=== PATIENT | female | born 1935 | race Caucasian/White ===

== ENCOUNTER → 2016-05-27 | Outpatient (CLI) | payer MEDICARE, OTHER | END | disposition home or self-care (01) | LOC: GMAB 15:15 | PROVIDERS: ATTEND Family Medicine | DX: I10 Essential (primary) hypertension (principal); G60.3 Idiopathic progressive neuropathy ==

== ENCOUNTER 2016-06-01 15:58 | Emergency (ER) | payer MEDICARE, OTHER ==
--- NOTE | 2016-06-01 16:17 | ED.PDOC ---
History of Present Illness - General Chief Complaint: Lower Extremity Injury Stated Complaint: pain left hip/fell Time Seen by Provider: 06/01/16 16:11 Source: patient Exam Limitations: no limitations - History of Present Illness Initial Comments: She stated that she was trimming her bushes slipped and fell then ambulance was called up by the since unable to get up because of pain on left hip.Denies loc remembers incident,no neck pain or headache Timing/Duration: just prior to arrival Severity: moderate Hip Pain Location: hip (L) Method of Injury/Prior Injury: fell Improving Factors: immobilization Worsening Factors: movement Associated Symptoms: denies symptoms Allergies/Adverse Reactions: Allergies NO KNOWN ALLERGY Allergy (Verified 06/01/16 16:24) Home Medications: Ambulatory Orders Gabapentin 06/01/16 Lipitor 06/01/16 Synthroid 06/01/16 Review of Systems - Review of Systems Constitutional: States: no symptoms reported EENTM: States: no symptoms reported Respiratory: States: no symptoms reported Cardiology: States: no symptoms reported Gastrointestinal/Abdominal: States: no symptoms reported Genitourinary: States: no symptoms reported Musculoskeletal: States: no symptoms reported Skin: States: no symptoms reported Neurological: States: paresthesia Endocrine: States: no symptoms reported Hematologic/Lymphatic: States: no symptoms reported Past Medical History (General) - Patient Medical History Hx Hypertension: Yes Hx Thyroid Disease: Yes - hypothyroidism Hx Other PMH: Yes - dyslipedemia Surgical History: other - breast biopsy - Social History Hx Tobacco Use: No Hx Alcohol Use: No - Activities of Daily Living Patient Lives Alone: No - Grooming Ability: Independent Eating (Feeding) Ability: Independent Toileting Ability: Independent Physical Exam - Physical Exam General Appearance: Alert, Comfortable, No apparent distress Eyes, Ears, Nose, Throat Exam: PERRL/EOMI, normal ENT inspection, TMs normal, pharynx normal Neck Exam: non-tender, full range of motion, normal alignment, normal inspection Cardiovascular/Respiratory: regular rate, rhythm, no M/R/G, normal peripheral pulses, no JVD, normal breath sounds, no respiratory distress Peripheral Pulses: radial,right: 2+, radial,left: 2+, dorsalis pedis,right: 2+, dorsalis pedis,left: 2+ Gastrointestinal/Abdominal: normal bowel sounds, non tender, soft, no organomegaly Back Exam: normal inspection, no CVA tenderness, no vertebral tenderness Extremity Exam: pelvis stable, bony-point tenderness - left hip, pain with movement, unable to bear weight Neurologic: no motor/sensory deficits, alert, normal mood/affect, oriented x 3 Skin Exam: normal color, warm/dry Progress - EKG/XRAY/CT XRAY: hip - left-femoral neck fracture Departure - Departure Clinical Impression: Femur fracture, left Qualifiers: Encounter type: initial encounter Femur location: neck Fracture type: closed Fall in home Qualifiers: Encounter type: initial encounter Qualifier Code: (W19.XXXA) Unspecified fall, initial encounter Time of Disposition: 17:15 Disposition: Discharge to Home or Self Care Condition: Good Home Medications: Ambulatory Orders Gabapentin 06/01/16 Lipitor 06/01/16 Synthroid 06/01/16
[2016-06-01 16:24] VITALS: TEMP 97.7
--- NOTE | 2016-06-01 16:50 | RAD ---
PROCEDURE: Pelvis,2 or More Views Clinical History: pain Indication: Left hip pain Comparison: X-ray of the left hip done on the same day . Technique: 2.0 frontal views of the pelvis Findings: There is subcapital fracture of the proximal left femur. The left femoral acetabular articulation is intact. The remainder of the bony pelvis does not show any evidence of acute bony trauma. Degenerative changes are seen in the visualized lower lumbar spine. Impression: There is subcapital fracture of the proximal left femur. The left femoral acetabular articulation is intact. Place of interpretation: [id number]. Electronically signed by: Gurwinder Butcher MD 06/01/2016 4:49 PM [employer]IE[employer]
[2016-06-01] MEDS ORDERED: HYDROmorphone HCL INJ 2 MG/ML VIAL IV ONE (17:39)
[2016-06-01 18:03] VITALS: BP 173/79; O2SAT 97
--- NOTE | 2016-06-17 00:02 | RAD ---
PROCEDURE: Hip,Left 2 Views Clinical History: pain Indication: Left hip pain Comparison: None. Technique: 2.0 views of the left hip. Findings: There is subcapital fracture of the proximal left femur. The left femoral acetabular articulation is intact. The remainder of the visualized bones of the left side of the pelvis are intact Impression: There is subcapital fracture of the proximal left femur. The left femoral acetabular articulation is intact. Location of Interpretation: [facility] Electronically signed by: Gurwinder Butcher MD 06/01/2016 4:48 PM [employer]
--- NOTE | 2016-06-17 00:02 | RAD ---
PROCEDURE: Pelvis,2 or More Views Clinical History: pain Indication: Left hip pain Comparison: X-ray of the left hip done on the same day . Technique: 2.0 frontal views of the pelvis Findings: There is subcapital fracture of the proximal left femur. The left femoral acetabular articulation is intact. The remainder of the bony pelvis does not show any evidence of acute bony trauma. Degenerative changes are seen in the visualized lower lumbar spine. Impression: There is subcapital fracture of the proximal left femur. The left femoral acetabular articulation is intact. Place of interpretation: [id number]. Electronically signed by: Gurwinder Butcher MD 06/01/2016 4:49 PM [employer]OPER
== END 2016-06-01 18:03 | disposition home or self-care (01) ==
LOC: ER 15:58
DX: S72.002A Fracture of unspecified part of neck of left femur, initial encounter for closed fracture (principal); I10 Essential (primary) hypertension; E03.9 Hypothyroidism, unspecified; E78.5 Hyperlipidemia, unspecified; Z79.899 Other long term (current) drug therapy; W01.0XXA Fall on same level from slipping, tripping and stumbling without subsequent striking against object, initial encounter; Y93.H2 Activity, gardening and landscaping; Y92.007 Garden or yard of unspecified non-institutional (private) residence as the place of occurrence of the external cause
CPT/HCPCS: 72190; 73502; J1170

== ENCOUNTER → 2016-12-17 | Outpatient (CLI) | payer MEDICARE, OTHER | END | disposition home or self-care (01) | LOC: GMAB 10:51 | PROVIDERS: ATTEND Family Medicine | DX: E03.9 Hypothyroidism, unspecified (principal); D64.9 Anemia, unspecified; E53.8 Deficiency of other specified B group vitamins ==

== ENCOUNTER → 2017-01-30 | Outpatient (CLI) | payer MEDICARE, OTHER ==
--- NOTE | 2017-01-31 13:08 | MAM ---
EXAM DESCRIPTION: 3D Screening BILATERAL. Digital mammography. CLINICAL HISTORY: 82 years Female SCREENING . No complaints. No family history of breast cancer. Postmenopausal. Taking HRT five or more years ago. Prior benign left breast biopsy. COMPARISON: 2-D digital screening bilateral studies 01/23/2015 and 01/30/2016.. Report from prior examination also reviewed. TECHNIQUE: Bilateral CC and MLO projection full-field images, 3-D tomosynthesis digital mammographic technique. Also bilateral synthesized CC/ MLO full-field images. CAD not utilized. FINDINGS: The breast parenchymal density pattern is: Scattered areas of fibroglandular density. No skin thickening or nipple retraction Architectural distortion in the anterior third of the upper-outer quadrant of the left breast at the location of prior biopsy. Two site markers are present. Bilateral axillary lymph nodes. Bilateral solitary microcalcifications. Bilateral coarse calcifications. Asymmetrically dense breast tissue again noted in the upper outer quadrant of the anterior third of the middle third of the right breast. No focal, stellate mass or density, focal asymmetry , and no suspicious microcalcifications laterally. Stable mammograms compared to prior study (January 2015), taking into account differences in mammographic technique IMPRESSION: BI-RADS CATEGORY: 2 - BENIGN FINDINGS. FOLLOW UP: Routine digital bilateral screening, one year interval from January 2015. Written communication explaining the IMPRESSION and follow-up, will be mailed to the patient and referring health care provider. According to the [employer], yearly mammograms are recommended starting at age 40 and continuing as long as a woman is in good health. Any breast change noted on a breast self-exam should be reported promptly to the patient's healthcare provider. Breast MRI is recommended for women with an approximately 20-25% or greater lifetime risk of breast cancer, including women with a strong family history of breast or ovarian cancer and women who have been treated for Hodgkin's disease. A negative mammographic report should not delay tissue diagnosis in patients with significant clinical history or physical findings. Extremely dense breast tissue limits the sensitivity of digital mammography. Electronically signed by: Mychal Gao MD 01/31/2017 1:07 PM CDT
== END | disposition home or self-care (01) ==
LOC: MAMMO 10:08
PROVIDERS: ATTEND Family Medicine
DX: Z12.31 Encounter for screening mammogram for malignant neoplasm of breast (principal)
CPT/HCPCS: 77063; G0202

== ENCOUNTER 2017-02-12 05:48 | Day surgery (SDC) | payer MEDICARE, OTHER ==
[2017-02-12] MEDS ORDERED: LACTATED RINGERS 1,000 ML ONE (06:04)
[2017-02-12] MEDS ORDERED: PROPOFOL 200 MG/20 ML VIAL IV ONE (10:00)
--- NOTE | 2017-02-12 11:14 | OP ---
DATE OF PROCEDURE: 02/12/17 PREOPERATIVE DIAGNOSIS: 1. Fecal occult blood positive. 2. Diarrhea. POSTOPERATIVE DIAGNOSIS: 1. Internal hemorrhoids. 2. Diverticulosis. 3. Colonic polyps. PROCEDURE: 1. Colonoscopy plus biopsy plus polypectomy. SURGEON: Dung Jesus MD. COMPLICATIONS: None apparent. BLOOD LOSS: None. MEDICATIONS: Monitored anesthesia care. DESCRIPTION OF PROCEDURE: Informed consent was obtained prior to sedation. The preprocedure cardiopulmonary assessment was satisfactory. The patient was placed in the left lateral decubitus position and was sedated. A digital rectal exam was unremarkable. The tip of the Olympus colonoscope was inserted in the rectum and guided over to the cecum. The cecum was identified by locating the ileocecal valve and appendiceal orifice. The mucosa of the cecum, ascending colon, hepatic flexure, transverse colon, splenic flexure, descending colon and sigmoid colon was closely examined. Direct and retroflexed views of the rectum were obtained. The patient had a little cluster of tiny sessile polyps in the ascending colon. These were removed with a cold snare and recovered. The patient had some sigmoid diverticula and she had internal hemorrhoids. Otherwise, the colon mucosa was unremarkable. I took biopsies of normal appearing colonic mucosa randomly in order to look for microscopic colitis. The procedure was then terminated. RECOMMENDATIONS: 1. Followup pathology results. 2. Adjust therapy as indicated. #[id number] cc: Fabricio Gotti MD MTDD
[2017-02-12 13:40] VITALS: BP 79/46; TEMP 97; O2SAT 99
== END 2017-02-12 11:20 | disposition home or self-care (01) ==
LOC: AMB 05:48
PROVIDERS: ATTEND Internal Medicine Gastroenterology
DX: R19.5 Other fecal abnormalities (principal); R19.7 Diarrhea, unspecified; D12.2 Benign neoplasm of ascending colon; K52.831 Collagenous colitis; K57.30 Diverticulosis of large intestine without perforation or abscess without bleeding; K64.8 Other hemorrhoids; E78.5 Hyperlipidemia, unspecified; E03.9 Hypothyroidism, unspecified; Z79.82 Long term (current) use of aspirin; Z79.899 Other long term (current) drug therapy
CPT/HCPCS: 00810; 45385; 88305; J3490; J7120

== ENCOUNTER → 2017-02-20 | Outpatient (CLI) | payer MEDICARE, OTHER ==
--- NOTE | 2017-02-20 14:30 | CT ---
EXAM DESCRIPTION: Abdomen/Pelvis w/Contrast CLINICAL HISTORY: BLOOD IN STOOL COMPARISON: None. TECHNIQUE: Spiral-axial scans at 5.0 mm intervals through the abdomen and pelvis, after nonionic IV contrast. No oral contrast. Coronal and sagittal 2.0 mm reconstructions. Delayed scans, liver through the pelvis. Axial-spiral 5mm. No adverse reactions. Total Exam DLP: 1083.97 mGy-cm. This exam was performed according to our departmental dose-optimization program which includes automated exposure control, adjustment of the mA and/or kV according to patient size and/or use of iterative reconstruction technique; to reduce radiation dose to as low as reasonably achievable (ALARA). FINDINGS: Lung bases and pleura: Unremarkable. Liver, Stomach, Spleen, Adrenal Glands: Small sliding hiatal hernia of the stomach. Other organs are negative. Pancreas, Gallbladder, Ducts: Multiple rim calcified gallstones posterior wall with possible wall thickening. Normal density of the surrounding fat. Common bile duct normal caliber. Pancreas unremarkable. Kidneys and Ureters: No hydronephrosis or hydroureter. Uniform enhancement. No perinephric fluid. Mesentery: No free air or free fluid. Minimal mesenteric stranding around the transverse colon and splenic flexure. No other areas of stranding with no fascial thickening. Aorta: Moderate to severe atherosclerotic calcification also involving the ostia of the major vessels originating from the aorta. Minimal calcification in the bilateral common iliac arteries. No aneurysm. Small Bowel: Negative. Terminal Ileum/Cecum: Unremarkable. Retrocecal appendix normal caliber. Normal density of the surrounding mesentery. Colon: Mucosal thickening in the transverse colon with minimal stranding of the serosa. Pelvic Organs: Uterus is not retroverted. Ovaries not well seen. No fluid in the cul-de-sac. Spine and Bony Pelvis: Spondylosis L4-5 posterior bulging disc and foraminal narrowing. Also similar process less diffuse and L5-S1. Bulging discs L2-3 and L3-4. Spondylosis in the included thoracic spine. Left total hip arthroplasty. Degenerative subchondral cysts in the right acetabulum. Abdominal Wall/Back Soft Tissues: Bilateral small fatty inguinal hernias not containing bowel. IMPRESSION: 1. Diffuse inflammatory process involving the transverse colon and splenic flexure. Nonspecific colitis. Cannot exclude Crohn's disease or ulcerative colitis. No free air or free fluid. 2. Multilevel levels of spondylosis in the lumbar thoracic spine. Degenerative changes in the right acetabulum. 3. Small sliding hiatal hernia of the stomach. Bilateral small fatty inguinal hernias not containing bowel. Electronically signed by: Mychal Gao MD 02/20/2017 2:29 PM CDT
== END | disposition home or self-care (01) ==
LOC: CT 10:29
PROVIDERS: ATTEND Family Medicine
DX: K92.1 Melena (principal); R63.4 Abnormal weight loss; R31.21 Asymptomatic microscopic hematuria

== ENCOUNTER → 2018-02-05 | Outpatient (CLI) | payer MEDICARE, OTHER ==
--- NOTE | 2018-02-05 16:34 | MAM ---
EXAM DESCRIPTION: 3D Screening BILATERAL : Digital Mammography. CLINICAL HISTORY: 83 years Female SCREENING . No complaints. No personal history or family history of breast cancer. Childbirth. Postmenopausal 20 years ago. Taking HRT 5 or more years ago. Benign left breast biopsy. Lifetime risk of developing breast cancer (Tyrer-Cuzick model)(%): 1.4. COMPARISON: Bilateral screening digital breast tomosynthesis 01/30/2017. No prior reports available. TECHNIQUE: Bilateral CC and MLO projection full-field images, Digital tomosynthesis mammographic technique. Bilateral digital 2-D full-field MLO images. CAD not utilized. FINDINGS: The breast parenchymal density pattern is: Scattered areas of fibroglandular density. No skin thickening or nipple retraction. Bilateral axillary lymph nodes. Bilateral microcalcifications and coarse calcifications. Surgical clips noted in the upper outer quadrant of the middle third of the left breast at site of prior biopsy. Postbiopsy changes noted in the soft tissues. Bilateral vascular calcifications. No new focal, stellate mass or density, focal asymmetry , and no suspicious microcalcifications bilaterally. Stable mammograms compared to prior study. IMPRESSION: Benign exam. BIRAD CATEGORY: 2 BENIGN FINDINGS. RECOMMENDATIONS: FOLLOW UP: Routine digital bilateral screening, one year interval from January 2018. Written communication explaining the IMPRESSION and follow-up, will be mailed to the patient and referring health care provider. According to the [employer], yearly mammograms are recommended starting at age 40 and continuing as long as a woman is in good health. Any breast change noted on a breast self-exam should be reported promptly to the patient's healthcare provider. Breast MRI is recommended for women with an approximately 20-25% or greater lifetime risk of breast cancer, including women with a strong family history of breast or ovarian cancer and women who have been treated for Hodgkin's disease. A negative mammographic report should not delay tissue diagnosis in patients with significant clinical history or physical findings. Extremely dense breast tissue limits the sensitivity of digital mammography. Electronically signed by: Mychal Gao MD 02/05/2018 4:33 PM CDT
== END ==
LOC: MAMMO 09:27
PROVIDERS: ATTEND Family Medicine
DX: Z12.31 Encounter for screening mammogram for malignant neoplasm of breast (principal)

== ENCOUNTER → 2018-02-24 | Outpatient (CLI) | payer MEDICARE, OTHER | LOC: GMAE 10:23 | PROVIDERS: ATTEND Family Medicine | DX: E03.9 Hypothyroidism, unspecified (principal); E78.2 Mixed hyperlipidemia ==

== ENCOUNTER → 2018-05-13 | Outpatient (CLI) | payer MEDICARE, OTHER | LOC: GMATM 17:15 | PROVIDERS: ATTEND Nurse Practitioner Family | DX: R03.0 Elevated blood-pressure reading, without diagnosis of hypertension (principal) ==

== ENCOUNTER → 2019-03-15 | Outpatient (CLI) | payer MEDICARE, OTHER | LOC: GMAE 10:33 | PROVIDERS: ATTEND Family Medicine | DX: E03.9 Hypothyroidism, unspecified (principal); I10 Essential (primary) hypertension ==

== ENCOUNTER → 2020-06-13 | Outpatient (CLI) | payer MEDICARE, OTHER | LOC: GMAE 11:38 | PROVIDERS: ATTEND Family Medicine | DX: E03.9 Hypothyroidism, unspecified (principal); I10 Essential (primary) hypertension ==